=== PATIENT | male | born 1980 | race Caucasian/White ===

== ENCOUNTER → 2020-08-06 15:07 | Outpatient (CLI) | payer OTHER, SELFPAY ==
--- NOTE | ~2020-08-06 | XR_ITS ---
EXAMINATION: XR shoulder RT min 2V DATE: 08/06/2020 17:04 INDICATION: Right shoulder pain. TECHNIQUE: 4 views of right shoulder were obtained. COMPARISON: None. FINDINGS: Bone alignment is normal. No fracture. There is mild osteoarthritis of glenohumeral joint a nd acromioclavicular joint characterized by tiny marginal osteophytes. IMPRESSION: 1. Mild polyarticular osteoarthritis. Reviewed, dictated and finalized at location A.
--- NOTE | ~2020-08-06 | XR_ITS ---
EXAMINATION: XR shoulder LT min 2V DATE: 08/06/2020 17:03 INDICATION: Left shoulder pain. TECHNIQUE: 4 views of left shoulder were obtained. COMPARISON: None. FINDINGS: Bone alignment is normal. No fracture. There is mild osteoarthritis of glenohumeral joint a nd acromioclavicular joint. IMPRESSION: 1. Mild polyarticular osteoarthritis. Reviewed, dictated and finalized at location A.
--- NOTE | ~2020-08-06 | XR_ITS ---
EXAMINATION: XR hip BI 2V w AP pelvis EXAM DATE: 08/06/2020 17:03 INDICATION: No known recent injury provided at this time. Pain of the hips bilaterally. TECHNIQUE: Each hip imaged independently (separate right and also left hip) 04/15/2017 and frontal pro jections for interpretation. Frontal projection pelvis. Comparison is made to prior examination from 04/15/2017. FINDINGS: No radiographic evidence of hip avascular necrosis. There is mild symmetric bilateral hip primary osteoarthritis. There are no acute fractures or dislocations identified. There is no subcuta neous gas. Phleboliths. There are no radiopaque foreign bodies. IMPRESSION: Mild symmetric bilateral hip osteoarthritis. Reviewed, dictated and finalized at location A.
== END ==
PROVIDERS: PCP Family Medicine; Visit Provider Physician Assistant
DX: M16.0 Bilateral primary osteoarthritis of hip (principal); M19.011 Primary osteoarthritis, right shoulder; M19.012 Primary osteoarthritis, left shoulder
CPT/HCPCS: 73030; 73521

== ENCOUNTER 2021-06-28 16:54 | Emergency (ER) | payer OTHER, SELFPAY ==
--- NOTE | ~2021-06-28 | CT_ITS ---
EXAMINATION: CT brain wo con DATE: 06/28/2021 18:20 INDICATION: Fall down 8 steps; patient struck forehead. Intermittent dizziness. TECHNIQUE: Computed tomography (CT) of the head was performed without intravenous contrast. The mA wa s adjusted according to patient size. Iterative reconstruction technique was employed. Exam dose: 60 5.33 mGy-cm total exam DLP. COMPARISON: None FINDINGS: No intracranial mass lesion or hemorrhage or cerebrovascular accident. No midline shift or mass effect effect. Normal ventricular size. Normal chavez-white matter differentiation. No subdural or epidural hematoma. Mild focal posterior soft tissue swelling of the left maxillary sinus. The frontal sinuses and mastoi d air cells are otherwise unremarkable. No fracture or bone destruction of the cranial vault. IMPRESSION: No skull fracture or significant intracranial abnormality Reviewed, dictated and finalized at [facility]. Reviewed, dictated and finalized at location A.
[2021-06-28 17:05] VITALS: BP 141/90; PULSE 83; RESP 16; TEMP 36.6; O2SAT 100
--- NOTE | 2021-06-28 17:58 | ED.HEATRA ---
HPI - Head Injury General Chief complaint: Head Injury Stated complaint: dizziness/head injury days ago Time Seen by Provider: 06/28/21 17:44 Source: patient Mode of arrival: ambulatory Limitations: no limitations History of Present Illness HPI Narrative: This is a 40 year old male that presents to the ER after a head injury 3 days ago with dizziness. Reports he tripped and fell down about 8 steps. Reports hitting his head. Denies loss of consciousness. Reports that since then he has had intermittent dizziness. Denies prodromal symptoms, other injuries, fever, vision changes, vomiting, numbness, or weakness. Related Data Allergies Allergy/AdvReac Type Severity Reaction Status Date / Time No Known Allergies Allergy Verified 06/28/21 17:30 Review of Systems Review of Systems: CONSTITUTIONAL: Denies fever EYES: Denies visual changes GASTROINTESTINAL: Denies vomiting MUSCULOSKELETAL: Denies back pain, joint pain, or myalgia. NEUROLOGIC: Denies headache, numbness, or weakness. All systems reviewed & are unremarkable except as noted in HPI and below PMFSH Past Medical History Medical History Esophageal erosions 01-19-2012 Social History Social History (Updated 06/28/21 @ 18:01 by Ira Lim PA-C) Smoking packs per day: 0.5 Smoking cigarettes per day: 10.0 Tobacco type: smokeless tobacco Smokeless tobacco user: chewing tobacco Alcohol intake: current Substance use: current Substance use type: marijuana and crack/cocaine Gender identity (if verbalized by the patient): Male Exam Narrative: GENERAL: Well-appearing, well-nourished, and in no acute distress. HEAD: Normocephalic. Superficial abrasion present in the left temporal region EYES: PERRLA and EOMI. ENT: Nares clear, no rhinorrhea or epistaxis. Mucous membranes moist. Oropharynx without tonsillar hypertrophy exudate or other lesions. Bilateral TMs pearly chavez non-bulging NECK: Supple. No adenopathy or masses. CHEST: Clear to auscultation. No respiratory distress. No wheezes rales or rhonchi HEART: Regular rate and rhythm. No murmur heard. Normal peripheral pulses. EXTREMITIES: Normal range of motion. No edema or obvious deformity. Strength equal in bilateral upper extremities (5/5) SKIN: Warm, dry, no rash. NEURO: No focal deficits. Alert and oriented x3. Cranial nerves II through XII grossly intact. Normal [id number]. Normal gait PSYCH: Normal mood and affect Course Vital Signs Vital signs: Vital Signs Temperature 98 F 06/28/21 17:05 Pulse Rate 83 06/28/21 17:05 Respiratory Rate 16 06/28/21 17:05 Blood Pressure 141/90 H 06/28/21 17:05 Pulse Oximetry 100 06/28/21 17:05 Temperature 98 F 06/28/21 17:05 Pulse Rate 83 06/28/21 17:05 Respiratory Rate 16 06/28/21 17:05 Blood Pressure 141/90 H 06/28/21 17:05 Pulse Oximetry 100 06/28/21 17:05 MDM - Head Injury MDM Narrative Medical decision making narrative: Patient presents to the emergency department after head injury with intermittent dizziness. Patient reports falling down about 8 steps. Patient is neurologically intact. CT scan of the brain is without acute findings. Patient was updated on case findings. Instructed on care of concussion. He is to follow-up with primary care doctor. He was given warnings to return to the ER Imaging Data Radiologist's impression: ITS Impressions Head CT 06/28/21 18:27 IMPRESSION: No skull fracture or significant intracranial abnormality Critical Care Time Critical Care Time Critical Care Time: No Discharge Plan Discharge Clinical Impression: Concussion Qualifiers: Encounter type: initial encounter Loss of consciousness presence/duration: without LOC Qualified Code(s): S06.0X0A - Concussion without loss of consciousness, initial encounter Patient Disposition: Home, Self-Care Condition: Stable Instructions: Concussion
[2021-06-28] MEDS: MECLIZINE HCL 25 MG TABLET PO (18:03)
== END 2021-06-28 18:48 | disposition home or self-care (01) ==
LOC: ANHED 18:46
PROVIDERS: Emergency Provider Emergency Medicine; PCP Family Medicine
DX: S06.0X0A Concussion without loss of consciousness, initial encounter (principal); F17.210 Nicotine dependence, cigarettes, uncomplicated; W10.9XXA Fall (on) (from) unspecified stairs and steps, initial encounter
CPT/HCPCS: 70450; 99284; A9270

== ENCOUNTER 2024-01-16 07:55 | Outpatient (CLI) | payer OTHER, SELFPAY ==
--- NOTE | ~2024-01-16 | US_ITS ---
EXAMINATION: US abdomen complete DATE: 01/16/2024 08:23 INDICATION: Umbilical hernia without obstruction or gangrene. TECHNIQUE: Multiple grayscale and Doppler ultrasound images of the abdomen were obtained. COMPARISON: None FINDINGS: Abdominal aorta is normal in caliber. Inferior vena cava is normal. The visualized portions of the head and body of the pancreas are normal. The liver is normal without focal lesion. There is normal flow in main portal vein. The gallbladder is normal in size. No gallstones or gallbladder wall thickening. There was no sonographic Lester sign. The common duct is normal and measures 4 mm. The k idneys are normal in size. The spleen is normal in size. There is an umbilical hernia containing fat. IMPRESSION: 1. Umbilical hernia containing fat. Reviewed, dictated and finalized at location E. [facility]
== END 2024-01-16 07:56 ==
LOC: MICIMG 07:55
PROVIDERS: PCP Nurse Practitioner Family; Visit Provider Nurse Practitioner Family
DX: K42.9 Umbilical hernia without obstruction or gangrene (principal)
CPT/HCPCS: 76700

== ENCOUNTER 2024-02-17 15:25 | Outpatient (CLI) | payer OTHER, SELFPAY ==
[2024-02-17 18:29] LABS: Basophils Absolute Auto 0.1 K/mm3 (0.0-0.1); Basophils Percent Auto 0.6 % (0.2-1.2); Eosinophils Absolute Auto 0.1 K/mm3 (0-0.3); Eosinophils Percent Auto 1.4 % (0-4.4); Hematocrit 51.7 % (42.0-52.0); Hemoglobin 17.2 g/dL (14.0-18.0); Immature Granulocyte Absolute 0.03 K/mm3 (0.00-0.031); Immature Granulocyte Percent A 0.4 % (0-0.5); Lymphocytes Absolute Auto 2.86 K/mm3 (0.9-3.2); Lymphocytes Percent Auto 33.9 % (18.3-44.2); Mean Corpuscular HGB Conc 33.3 g/dl (32-36); Mean Corpuscular Hemoglobin 28.7 pg (26-34); Mean Corpuscular Volume 86.3 fl (80-100); Mean Platelet Volume 11.4 fl (7.4-10.4); Monocytes Absolute Auto 0.8 K/mm3 (0.1-0.6); Monocytes Percent Auto 9.2 % (2.6-8.5); Neutrophils Absolute Auto 4.6 K/mm3 (1.3-6.7); Neutrophils Percent Auto 54.5 % (45.5-73.1); Platelet Count Result 206 k/mm3 (150-375); Red Blood Count 5.99 M/mm3 (4.6-6.20); Red Cell Distribution Width 12.2 % (11.5-14.5); White Blood Count 8.4 K/mm3 (4.5-10.0)
[2024-02-17 19:11] LABS: Hemoglobin A1C 5.2 % (<5.7)
[2024-02-17 20:12] LABS: Alanine Aminotransferase 33 U/L (6-50); Albumin Level 4.3 g/dL (3.5-5.1); Alkaline Phosphatase 75 U/L (38-126); Anion Gap 3 mmol/L (4-12); Aspartate Amino Transferase 68 U/L (17-59); Bilirubin,Total 0.6 mg/dL (0.2-1.3); Blood Urea Nitrogen 12 mg/dL (9-20); Calcium 9.1 mg/dL (8.4-10.2); Carbon Dioxide 30 mmol/L (22-30); Chloride 103 mmol/L (98-107); Cholesterol 229 mg/dL (0-200); Estimated Glomerular Filt Rate > 60; Glucose 78 mg/dL (65-110); HDL Direct 38 mg/dL; Potassium 4.5 mmol/L (3.4-5.0); Sodium 136 mmol/L (137-145); Triglycerides 184 mg/dL (<150)
[2024-02-17 20:22] LABS: LDL Cholesterol Direct 144 mg/dL
== END 2024-02-17 15:26 | disposition home or self-care (01) ==
LOC: ANHGOSHLAB 15:27
PROVIDERS: PCP Nurse Practitioner Family; Visit Provider Nurse Practitioner Family
DX: Z00.00 Encounter for general adult medical examination without abnormal findings (principal); E78.00 Pure hypercholesterolemia, unspecified
CPT/HCPCS: 36415; 80053; 80061; 83036; 84443; 85025

== ENCOUNTER 2024-02-17 15:59 | Outpatient (CLI) | payer OTHER, SELFPAY ==
--- NOTE | ~2024-02-17 | XR_ITS ---
EXAMINATION: [id number] DATE: 02/17/2024 16:27 INDICATION: Right knee pain. TECHNIQUE: 2 views of right knee were obtained. COMPARISON: None. FINDINGS: Bone alignment is normal. No fracture. There is mild osteoarthritis of patellofemoral nestor rtment. No knee joint effusion. IMPRESSION: 1. Mild right knee osteoarthritis. Reviewed, dictated and finalized at location A.
== END 2024-02-17 16:00 ==
PROVIDERS: PCP Nurse Practitioner Family; Visit Provider Nurse Practitioner Family
DX: M25.561 Pain in right knee (principal); M17.11 Unilateral primary osteoarthritis, right knee
CPT/HCPCS: 73560